=== PATIENT | male | born 1950 | race African-American/Black ===

== ENCOUNTER 2019-11-24 16:36 | Observation (INO) ==
[2019-11-24] MEDS ORDERED: METOPROLOL TARTRATE 25 MG TABLET PO STA (18:21)
[2019-11-24 18:25] LABS: Basophils # 0.1 10*3/uL (0.0-0.2); Basophils % 0.7 % (0.0-0.8); Eosinophils # 0.1 10*3/uL (0.0-0.87); Eosinophils % 0.8 % (0.00-10.9); Hematocrit 42.1 VOL% (42.0-52.0); Hemoglobin 15.1 GM/DL (14.0-18.0); Immature Granulocytes % 0.3 %; Immature Granulocytes Absolute 0.02 #; Lymphocytes # 2.7 10*3/uL (1.4-4.0); Lymphocytes % 37.1 % (21.2-54.2); Mean Corpuscular HGB Conc 35.9 GM/DL (32-36); Mean Corpuscular Volume 101.9 FL (87-102); Mean Platelet Volume 10.8 FL (9.6-12.0); Monocytes % 8.8 % (1.7-12.7); Neutrophils % 52.3 % (38.7-73.9); Platelet Count 164 T/CUMM (130-400); Red Blood Count 4.13 MC/CUMM (3.8-5.5); Red Cell Distribution Width 13.6 % (9.3-17.3); White Blood Count 7.2 T/CUMM (4-12)
[2019-11-24 18:38] LABS: PT Patient Result 125.7 SECS (9.6-12.2)
[2019-11-24 18:40] LABS: INR 11.8
[2019-11-24 18:41] LABS: Troponin I < 0.015 NG/ML (0.00-0.045)
[2019-11-24] MEDS ORDERED: PHYTONADIONE 10 MG/1 ML AMP SUBCUT STA (18:46)
[2019-11-24 18:55] LABS: Albumin 3.4 G/DL (3.4-5.0); Bilirubin,Total 0.7 MG/DL (0.2-1.0); Calcium 8.2 MG/DL (8.5-10.1); Osmolality,Calculated 272.5 MOS/KG (273-304); Total Protein 6.5 G/DL (6.4-8.3)
[2019-11-24] MEDS ORDERED: POTASSIUM BICARB EFFERVESCENT 25 MEQ TABLET PO ONE (19:07)
[2019-11-24] MEDS ORDERED: diphenhydrAMINE CAP 25 MG CAPSULE PO PRN (19:26)
[2019-11-24] MEDS ORDERED: NICOTINE 21 MG/24 HR PATCH TRANSDERM PRN (19:26)
[2019-11-24] MEDS ORDERED: MORPHINE 4 MG/1 ML VIAL IV PRN (19:26)
[2019-11-24] MEDS ORDERED: ONDANSETRON 4 MG/2 ML VIAL IV PRN (19:26)
[2019-11-24] MEDS: ACETAMINOPHEN 325 MG TABLET PO PRN (21:40)
[2019-11-24] MEDS: POTASSIUM CHLORIDE 20 MEQ TABLET PO PRN ×2 (21:40→23:22)
[2019-11-24] MEDS: ZALEPLON 5 MG CAPSULE PO PRN (21:45)
[2019-11-24 23:55] LABS: PT Patient Result 117.8 SECS (9.6-12.2)
[2019-11-24 23:57] LABS: INR 11.1
[2019-11-25] MEDS ORDERED: SODIUM CHLORIDE 0.9% 1,000 ML IV PRN (00:05)
[2019-11-25] MEDS: POTASSIUM CHLORIDE 20 MEQ TABLET PO PRN ×3 (02:09→09:14)
[2019-11-25 05:56] LABS: Calcium 8.1 MG/DL (8.5-10.1); Osmolality,Calculated 271.7 MOS/KG (273-304)
[2019-11-25] MEDS: ACETAMINOPHEN 325 MG TABLET PO PRN ×2 (09:14→21:17)
[2019-11-25] MEDS: METOPROLOL TARTRATE 25 MG TABLET PO SCH ×2 (09:58→21:14)
[2019-11-25 10:31] LABS: INR 2.5
[2019-11-25 10:32] LABS: PT Patient Result 26.9 SECS (9.6-12.2)
[2019-11-25] MEDS: ZALEPLON 5 MG CAPSULE PO PRN (21:17)
[2019-11-26 05:18] LABS: INR 1.8; PT Patient Result 19.7 SECS (9.6-12.2)
[2019-11-26] MEDS: METOPROLOL TARTRATE 25 MG TABLET PO SCH (09:11)
[2019-11-26] MEDS ORDERED: METOPROLOL TARTRATE 25 MG TABLET PO ONE (10:39)
[2019-11-26 15:43] VITALS: BP 118/72
[2019-11-26] MEDS ORDERED: METOPROLOL TARTRATE 50 MG TABLET PO SCH (21:00)
== END 2019-11-26 15:59 | disposition home or self-care (01) ==
LOC: N.ED 16:36 → N.EDINP 16:36 → N.5E 20:09
PROVIDERS: ADMIT Internal Medicine Cardiovascular Disease; ATTEND Internal Medicine Cardiovascular Disease